=== PATIENT | female | born 1945 | race Caucasian/White ===

== ENCOUNTER → 2020-02-18 14:00 | Outpatient (BNVA) | payer MEDICARE, BC, SELFPAY | PROVIDERS: Visit Provider Nurse Practitioner Family | DX: Z11.59 Encounter for screening for other viral diseases (principal) | CPT/HCPCS: 87635 ==

== ENCOUNTER 2020-07-15 14:39 | Emergency (ER) | payer MEDICARE, BC, SELFPAY ==
--- NOTE | 2020-07-15 14:42 | XRR_ITS ---
PROCEDURE INFORMATION: Exam: XR Right Ankle Exam date and time: 07/15/2020 3:15 PM Age: 75 years old Clinical indication: Injury or trauma; Fall; Blunt trauma; Ankle; Right; Injury details: Pain on lateral side; Additional info: Trauma, fall TECHNIQUE: Imaging protocol: XR Right ankle. Views: 1 or 2 views. Total images: 2 COMPARISON: No relevant prior studies available. FINDINGS: Bones/joints: Nondisplaced avulsion fracture tip lateral malleolus right ankle. Ankle mortise intact. Soft tissues: Soft tissue swelling over the lateral malleolus. XR/XR ankle RT 2V [id number] IMPRESSION: 1. Nondisplaced avulsion fracture tip lateral malleolus right ankle. 2. Soft tissue swelling.
[2020-07-15 14:43] VITALS: BP 77/48; PULSE 59; RESP 18; TEMP 36.7; O2SAT 96; BMI 50.1
--- NOTE | 2020-07-15 15:19 | ECG_ITS ---
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 Measurements Intervals [place] Rate: 57 P: 33 ID: [id number] QRS: 3 QRSD: 81 T: 17 QT: 417 QTc: 407 Interpretive Statements SINUS BRADYCARDIA No previous ECG available for comparison Electronically Signed On 07-15-2020 20:27:22 CDT by Adelso Schuler M.D. [id number]
--- NOTE | 2020-07-15 15:33 | W.ED.FALL ---
HPI - Fall General: Chief Complaint: Fall Stated Complaint: Fall/pain in Rt ankle/Dizzy Time Seen by Provider: 07/15/20 14:58 Source: patient and family History of Present Illness: HPI Narrative: Patient presents with her says she came down off a porch and that she slipped on some wet grass area and twisted her right ankle. She denies hitting her head or any neck pain feels like she landed a little bit on her left side but denies any arm pain or chest pain or shortness of breath. She denies passing out she denies being dizzy spite what her stated complaint is. 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 She denies hip pain or thigh pain. She does have an abrasion on left knee but denies bony type pain Fall witnessed: yes, by family Place fall occurred: other Loss of consciousness: None Review of Systems General: Reports: 10 or more systems reviewed and unremarkable except in HPI and below Narrative: General: denies fatigue, fever or chills HEENT: denies ear pain, denies nasal congestion, denies vision changes, denies sore throat Neck: denies masses or pain Resp: denies cough, denies shortness of breath, denies pleuritic pain Cardio: denies chest pain, denies edema GI: denies abdominal pain, denies N/V/D, denies black/tarry or bloody stools : denies hematuria, denies dysuria Neuro: denies headache, denies dizziness, denies motor or sensory changes, denies hitting her head Musculoskeletal: see HPI, right ankle pain, denies hip or UE pain Skin: denies rashes, +abrasion over left knee Psych: denies SI or HI Endocrine: denies thyroid symptoms, denies lymphadenopathy all over ROS reviewed and patient denies PFSH ED PFSH: Social History Smoking and tobacco status: never smoked Alcohol intake: never Physical Exam Narrative: EXAM NARRATIVE: General: a/o/3, no distress Head: atraumatic HEENT: normal eyes, normal conjunctiva, normal hearing, normal external nose, normal mouth, mucous membranes moist Neck: FROM, trachea midline Chest: normal expansion, no gross deformities Resp: normal speech, no retractions, no accessory muscle use, CTA bilaterally Cardio: regular rate and rhythm and no murmur, no peripheral edema, normal peripheral pulses GI: soft, flat non tender, no guarding normal BS : deferred Musculoskeletal: Right lateral malleolus edema, normal pulses. denies knee pain bilaterally FROM, abrasion over left knee, no joint effusion, FROM of bilateral hips. denies chest wall pain, denies neck, thoracic or spine pain Neuro: a/o appropriate for age, no gross motor or sensory deficitys, CN II-XII grossly intact, normal coordination, normal speech Skin: no rashes Psych: cooperative, normal mood and effect Course Vital Signs: Vital signs: Vital Signs Temperature 98.1 F 07/15/20 14:43 Pulse Rate 60 07/15/20 15:50 Respiratory Rate 18 07/15/20 15:48 Blood Pressure 96/44 07/15/20 15:50 Pulse Oximetry 96 07/15/20 15:48 MDM - Fall MDM Narrative: Medical decision making narrative: Patient's blood pressure was 77/58 at triage and patient denies feeling dizzy or that being the cause she says she did take 2 Zanaflex prior to arrival when we got her in the room her blood pressure was improved. But she still had a another reading that was in the upper 90s so we will check some labs and an IV. I did discover that patient had gone to urgent care the who is a little ro[facility] says he went over there and some lady told him to come over here that he did not see anybody they saw nobody and told her to come to the ER I have no idea why they sent her here and what the cause was. Patient does not feel I need to x-ray her left knee she has full range of motion denies any neck or back pain and adamantly denies hitting her head We did have some pressure readings here that her pressure was 96/44 but her orthostatics were negative and she was asymptomatic. We will go ahead and start 500 cc of normal saline give her a little bolus here in the ER she does have a small avulsion fracture that I think we can treat with a gel splint they do have orthopedics in [place] where they live Patient is supposed to take atenolol tonight so recommended she hold that since her blood pressure has been on the low end she also needs to monitor it and if her blood pressure is soft tomorrow like under 115 she probably needs to hold her amlodipine as well she states keep a better eye on it and she may need to adjust her medications Medical Records: Attestation: I reviewed the patient's medical records. Lab Data: Attestation: I reviewed the patient's lab results. Labs: Lab Results 07/15/20 07/15/20 Range/Units 15:45 15:45 WBC 7.1 (4.0-10.0) 10^3/ uL RBC 4.26 (4.1-5.3) 10^6/u L Hgb 14.1 (11.5-15.3) g/dL Hct 41.2 (37.0-47.0) % MCV 96.7 (81-99) fL MCH 33.1 (28.0-34.0) pg MCHC 34.2 (30.0-36.0) g/dL RDW 12.6 (12.1-15.1) % Plt Count 226 (130-400) 10^3/c mm MPV 9.3 (7.4-10.4) fL Neut % (Auto) 53.4 % Lymph % (Auto) 29.9 % [place] % (Auto) 10.7 % Eos % (Auto) 4.8 % Baso % (Auto) 1.1 % Neut # (Auto) 3.78 (1.8-7.7) 10^3/u L Lymph # (Auto) 2.1 (0.8-4.8) 10^3/u L [place] # (Auto) 0.8 (0.2-0.9) 10^3/u L Eos # (Auto) 0.3 (0.0-0.8) 10^3/u L Baso # (Auto) 0.1 (0.0-0.1) 10^3/u L Nucleated RBC % (a uto) 0 % Nucleated RBCs # 0.0 /100WBC Sodium 141 (136-145) mmol/L Potassium 4.5 (3.5-5.1) mmol/L Chloride 105 (98-107) mmol/L Carbon Dioxide 25 (22-29) mmol/L Anion Gap 15.5 (5-19) BUN 23 (8-23) mg/dL Creatinine 1.0 H (0.5-0.9) mg/dL GFR Calculation Not Reportable Glucose 115 (65-115) mg/dL Calculated Osmolal ity 297 H (285-295) mOsm/k g Calcium 9.8 (8.5-10.5) mg/dL Imaging Data^: Other Xray: Attestation: I personally reviewed and interpreted this imaging study as follows: My impression: Avulsion fracture distal fibula nondisplaced EKG Data^: EKG 1: Attestation: I personally reviewed and interpreted this EKG as follows: EKG interpretation date: 07/15/20 EKG interpretation time: 15:32 Interpretation: sinus ashlee, rate 57, no acute st changes or elevation normal intervals and axis Discharge Plan Discharge Patient Disposition: Home Clinical Impression: Avulsion fracture of distal end of fibula, Blood pressure, low, incidental finding Condition: Stable Prescriptions: No Action atenolol 50 mg tablet 50 mg PO BID@1000,1900 RF: 0 citalopram 20 mg tablet 20 mg PO DAILY@10 RF: 0 dicyclomine 20 mg tablet 20 mg PO ONCE PRN (Reason: STOMACH CRAMPS) RF: 0 omeprazole magnesium [Prilosec OTC] 20 mg tablet,delayed release (DR/EC) 20 mg PO DAILY@10 RF: 0 amlodipine-benazepril [Lotrel] 10-20 mg capsule 1 cap PO DAILY@1000 RF: 0 levothyroxine [Synthroid] 100 mcg tablet 100 mcg PO DAILY@10 RF: 0 estradiol 0.0375 mg/24 hr patch semiweekly See Rx Instructions .ROUTE .COMPLEX RF: 0 simvastatin [Zocor] 40 mg tablet 40 mg PO DAILY@1900 RF: 0 travoprost [Travatan Z] 0.004 % drops 1 drp ophthalmic (eye) DAILY RF: 0 tizanidine 2 mg capsule 2 mg PO BID PRN (Reason: Muscle Pain) RF: 0 metformin 500 mg tablet 1,000 mg PO DAILY@1900 RF: 0 cyanocobalamin (vitamin B-12) 1,000 mcg capsule 1,000 mcg PO DAILY@10 RF: 0 coenzyme Q10 1 tab PO DAILY@10 RF: 0 Ca carbonate-mag oxide-vit C 1 tab PO BID@,19 RF: 0 cholecalciferol (vitamin D3) 25 mcg (1,000 unit) capsule 25 mcg PO DAILY@1000 RF: 0 potassium chloride 8 mEq capsule, extended release 8 meq PO DAILY@10 RF: 0 multivitamin Tablet 1 tab PO DAILY@1900 RF: 0 lidocaine 5 % Adhesive Patch,Medicated 1 patch TOPICAL DAILY PRN (Reason: Pain) RF: 0 gabapentin 300 mg Capsule 300 mg PO TID RF: 0 Excedrin Migraine 250-250-65 mg Tablet 1 tab PO DAILY RF: 0 fiber Capsule 1 cap PO BID@,19 RF: 0 Discharge Orders: Discharge ED (Routine); Ordered 07/15/20 Ordered By: Gardenia Hodge Patient Instructions: Ankle Fracture (ED), Hypotension (ED) Activity Restrictions/Additional Instructions: I think you should hold your atenolol tonight your blood pressure in the morning and if it is below 115 I would hold your amlodipine or cut it in half and monitor your blood pressure regularly throughout the day Keep an eye on her blood pressure and take some readings twice a day over the next week as you may be running too low on her blood pressure and need to cut back on some of your medication return if you have chest pain shortness of breath or passing out you need to wear your ankle splint ice and elevate you need to call your orthopedic doctor on Friday and have a follow-up appointment to determine if the splint is adequate or if you need further casting or a boot Thank you for choosing [facility] for your healthcare needs today. Please realize this is an emergency room and that we are providing you with a medical screening exam and this may not be complete and all inclusive of all the testing and or work up that you may need to determine your ailment or severity of your illness. It is very important that you follow up as instructed or that you return to the Emergency Department should you have concerns or if your condition changes or worsens in any way. Coding Level of Care Code ED Extract Operator for Reva Sharpe
[2020-07-15 15:48] VITALS: BP 96/44; PULSE 60; RESP 18; O2SAT 96
[2020-07-15 15:50] VITALS: BP 94/48; BP 94/52; BP 96/44; PULSE 60; PULSE 61; PULSE 65
--- NOTE | 2020-07-15 15:53 | PC.NURSE ---
pt states she only has pain when she moves her ankle
[2020-07-15 15:54] LABS: Basophils # 0.1 10^3/uL (0.0-0.1); Basophils % 1.1 %; Eosinophils # 0.3 10^3/uL (0.0-0.8); Eosinophils % 4.8 %; Hematocrit 41.2 % (37.0-47.0); Hemoglobin 14.1 g/dL (11.5-15.3); Lymphocytes # 2.1 10^3/uL (0.8-4.8); Lymphocytes % 29.9 %; Mean Corpuscular HGB Conc 34.2 g/dL (30.0-36.0); Mean Corpuscular Hemoglobin 33.1 pg (28.0-34.0); Mean Corpuscular Volume 96.7 fL (81-99); Mean Platelet Volume 9.3 fL (7.4-10.4); Monocytes # 0.8 10^3/uL (0.2-0.9); Monocytes % 10.7 %; Neutrophils # 3.78 10^3/uL (1.8-7.7); Neutrophils % 53.4 %; Nucleated Red Blood Cells % 0 %; Platelet Count 226 10^3/cmm (130-400); Red Blood Count 4.26 10^6/uL (4.1-5.3); Red Cell Distribution Width 12.6 % (12.1-15.1); White Blood Count 7.1 10^3/uL (4.0-10.0)
[2020-07-15 16:15] LABS: Anion Gap 15.5 (5-19); Blood Urea Nitrogen 23 mg/dL (8-23); Calcium 9.8 mg/dL (8.5-10.5); Carbon Dioxide 25 mmol/L (22-29); Chloride 105 mmol/L (98-107); Glucose 115 mg/dL (65-115); Osmolality Calculated 297 mOsm/kg (285-295); Potassium 4.5 mmol/L (3.5-5.1); Sodium 141 mmol/L (136-145)
[2020-07-15] MEDS: sodium chloride 0.9% 500 ML 999 ML IV (16:16)
--- NOTE | 2020-07-15 17:10 | W.ED.FALL ---
HPI - Fall General: Chief Complaint: Fall Stated Complaint: Fall/pain in Rt ankle/Dizzy Time Seen by Provider: 07/15/20 14:58 Source: patient and family History of Present Illness: Place fall occurred: other [facility] ED PFSH: Social History Smoking and tobacco status: never smoked Alcohol intake: never Course Vital Signs: Vital signs: Vital Signs Temperature 98.1 F 07/15/20 14:43 Pulse Rate 60 07/15/20 15:50 Respiratory Rate 18 07/15/20 15:48 Blood Pressure 96/44 07/15/20 15:50 Pulse Oximetry 96 07/15/20 15:48 MDM - Fall Lab Data: Labs: Lab Results 07/15/20 07/15/20 Range/Units 15:45 15:45 WBC 7.1 (4.0-10.0) 10^3/ uL RBC 4.26 (4.1-5.3) 10^6/u L Hgb 14.1 (11.5-15.3) g/dL Hct 41.2 (37.0-47.0) % MCV 96.7 (81-99) fL MCH 33.1 (28.0-34.0) pg MCHC 34.2 (30.0-36.0) g/dL RDW 12.6 (12.1-15.1) % Plt Count 226 (130-400) 10^3/c mm MPV 9.3 (7.4-10.4) fL Neut % (Auto) 53.4 % Lymph % (Auto) 29.9 % [place] % (Auto) 10.7 % Eos % (Auto) 4.8 % Baso % (Auto) 1.1 % Neut # (Auto) 3.78 (1.8-7.7) 10^3/u L Lymph # (Auto) 2.1 (0.8-4.8) 10^3/u L [place] # (Auto) 0.8 (0.2-0.9) 10^3/u L Eos # (Auto) 0.3 (0.0-0.8) 10^3/u L Baso # (Auto) 0.1 (0.0-0.1) 10^3/u L Nucleated RBC % (a uto) 0 % Nucleated RBCs # 0.0 /100WBC Sodium 141 (136-145) mmol/L Potassium 4.5 (3.5-5.1) mmol/L Chloride 105 (98-107) mmol/L Carbon Dioxide 25 (22-29) mmol/L Anion Gap 15.5 (5-19) BUN 23 (8-23) mg/dL Creatinine 1.0 H (0.5-0.9) mg/dL GFR Calculation Not Reportable Glucose 115 (65-115) mg/dL Calculated Osmolal ity 297 H (285-295) mOsm/k g Calcium 9.8 (8.5-10.5) mg/dL Discharge Plan Discharge Patient Disposition: Home Clinical Impression: Avulsion fracture of distal end of fibula, Blood pressure, low, incidental finding Condition: Stable Prescriptions: No Action atenolol 50 mg tablet 50 mg PO BID@1000,1900 RF: 0 citalopram 20 mg tablet 20 mg PO DAILY@10 RF: 0 dicyclomine 20 mg tablet 20 mg PO ONCE PRN (Reason: STOMACH CRAMPS) RF: 0 omeprazole magnesium [Prilosec OTC] 20 mg tablet,delayed release (DR/EC) 20 mg PO DAILY@10 RF: 0 amlodipine-benazepril [Lotrel] 10-20 mg capsule 1 cap PO DAILY@999 RF: 0 levothyroxine [Synthroid] 100 mcg tablet 100 mcg PO DAILY@10 RF: 0 estradiol 0.0375 mg/24 hr patch semiweekly See Rx Instructions .ROUTE .COMPLEX RF: 0 simvastatin [Zocor] 40 mg tablet 40 mg PO DAILY@1899 RF: 0 travoprost [Travatan Z] 0.004 % drops 1 drp ophthalmic (eye) DAILY RF: 0 tizanidine 2 mg capsule 2 mg PO BID PRN (Reason: Muscle Pain) RF: 0 metformin 500 mg tablet 1,000 mg PO DAILY@190 RF: 0 cyanocobalamin (vitamin B-12) 1,000 mcg capsule 1,000 mcg PO DAILY@10 RF: 0 coenzyme Q10 1 tab PO DAILY@10 RF: 0 Ca carbonate-mag oxide-vit C 1 tab PO BID@,19 RF: 0 cholecalciferol (vitamin D3) 25 mcg (1,000 unit) capsule 25 mcg PO DAILY@1000 RF: 0 potassium chloride 8 mEq capsule, extended release 8 meq PO DAILY@10 RF: 0 multivitamin Tablet 1 tab PO DAILY@1900 RF: 0 lidocaine 5 % Adhesive Patch,Medicated 1 patch TOPICAL DAILY PRN (Reason: Pain) RF: 0 gabapentin 300 mg Capsule 300 mg PO TID RF: 0 Excedrin Migraine 250-250-65 mg Tablet 1 tab PO DAILY RF: 0 fiber Capsule 1 cap PO BID@10,19 RF: 0 Discharge Orders: Discharge ED (Routine); Ordered 07/15/20 Ordered By: Gardenia Hodge Patient Instructions: Ankle Fracture (ED), Hypotension (ED) Activity Restrictions/Additional Instructions: I think you should hold your atenolol tonight your blood pressure in the morning and if it is below 115 I would hold your amlodipine or cut it in half and monitor your blood pressure regularly throughout the day Keep an eye on her blood pressure and take some readings twice a day over the next week as you may be running too low on her blood pressure and need to cut back on some of your medication return if you have chest pain shortness of breath or passing out you need to wear your ankle splint ice and elevate you need to call your orthopedic doctor on Friday and have a follow-up appointment to determine if the splint is adequate or if you need further casting or a boot Thank you for choosing [facility] for your healthcare needs today. Please realize this is an emergency room and that we are providing you with a medical screening exam and this may not be complete and all inclusive of all the testing and or work up that you may need to determine your ailment or severity of your illness. It is very important that you follow up as instructed or that you return to the Emergency Department should you have concerns or if your condition changes or worsens in any way. Coding Level of Care Code ED Pipelaying Fitter for Reva Sharpe
[2020-07-15 17:40] VITALS: BP 111/50; PULSE 60; RESP 18; O2SAT 94
== END 2020-07-15 17:40 | disposition home or self-care (01) ==
PROVIDERS: Emergency Provider Emergency Medicine
DX: S82.831A Other fracture of upper and lower end of right fibula, initial encounter for closed fracture (principal); I95.9 Hypotension, unspecified; W01.0XXA Fall on same level from slipping, tripping and stumbling without subsequent striking against object, initial encounter
CPT/HCPCS: 73600; 80048; 85025; 93005; 99283; J7040

== ENCOUNTER 2021-06-21 06:00 | Outpatient (RCR) | payer MEDICARE, BC, SELFPAY | END 2021-07-12 23:59 | disposition home or self-care (01) | LOC: SPT 06:00 | PROVIDERS: Referring Provider Family Medicine; Visit Provider Family Medicine | DX: H81.13 Benign paroxysmal vertigo, bilateral (principal) | CPT/HCPCS: 95992; 97162 ==

== ENCOUNTER 2021-07-13 06:00 | Outpatient (RCR) | payer MEDICARE, BC, SELFPAY | END 2021-07-27 23:59 | disposition home or self-care (01) | LOC: SPT 06:00 | PROVIDERS: Referring Provider Family Medicine; Visit Provider Family Medicine | DX: H81.13 Benign paroxysmal vertigo, bilateral (principal) | CPT/HCPCS: 95992 ==

== ENCOUNTER 2021-07-17 06:00 | Outpatient (RCR) | payer MEDICARE, BC, SELFPAY | END 2021-08-11 23:59 | disposition home or self-care (01) | LOC: SST 06:00 | PROVIDERS: Referring Provider Family Medicine; Visit Provider Family Medicine | DX: R49.9 Unspecified voice and resonance disorder (principal) | CPT/HCPCS: 92507; 92524 ==

== ENCOUNTER 2021-08-12 06:00 | Outpatient (RCR) | payer MEDICARE, BC, SELFPAY | END 2021-08-31 16:52 | disposition home or self-care (01) | LOC: SST 06:00 | PROVIDERS: Referring Provider Family Medicine; Visit Provider Family Medicine | DX: R49.9 Unspecified voice and resonance disorder (principal) | CPT/HCPCS: 92507 ==

== ENCOUNTER 2022-07-24 11:13 | Outpatient (RCR) | payer MEDICARE, BC, SELFPAY | END 2022-08-11 23:59 | disposition home or self-care (01) | LOC: SPT 11:13 | PROVIDERS: Visit Provider Family Medicine | DX: H81.12 Benign paroxysmal vertigo, left ear (principal) | CPT/HCPCS: 95992; 97161 ==

== ENCOUNTER 2023-06-19 06:00 | Outpatient (RCR) | payer MEDICARE, BC, SELFPAY | END 2023-07-13 23:59 | disposition home or self-care (01) | LOC: GST 06:00 | PROVIDERS: Visit Provider Family Medicine | DX: R13.10 Dysphagia, unspecified (principal); R29.6 Repeated falls | CPT/HCPCS: 92507; 92523 ==

== ENCOUNTER 2023-06-25 06:00 | Outpatient (RCR) | payer MEDICARE, BC, SELFPAY | END 2023-07-13 23:59 | disposition home or self-care (01) | LOC: GPT 06:00 | PROVIDERS: Visit Provider Family Medicine | DX: R29.6 Repeated falls (principal) | CPT/HCPCS: 97110; 97112; 97163; 97530 ==

== ENCOUNTER 2023-07-14 06:00 | Outpatient (RCR) | payer MEDICARE, BC, SELFPAY | END 2023-08-12 23:59 | disposition home or self-care (01) | LOC: GST 06:00 | PROVIDERS: Visit Provider Family Medicine | DX: R13.10 Dysphagia, unspecified (principal); R26.9 Unspecified abnormalities of gait and mobility | CPT/HCPCS: 92507 ==

== ENCOUNTER 2023-07-14 06:00 | Outpatient (RCR) | payer MEDICARE, BC, SELFPAY | END 2023-08-12 23:59 | disposition home or self-care (01) | LOC: GPT 06:00 | PROVIDERS: Visit Provider Family Medicine | DX: R29.6 Repeated falls (principal) | CPT/HCPCS: 97110; 97112 ==

== ENCOUNTER 2023-08-13 06:00 | Outpatient (RCR) | payer MEDICARE, BC, SELFPAY | END 2023-09-12 23:59 | disposition home or self-care (01) | LOC: GPT 06:00 | PROVIDERS: Visit Provider Family Medicine | DX: R29.6 Repeated falls (principal) | CPT/HCPCS: 97110; 97112 ==

== ENCOUNTER 2023-08-13 06:00 | Outpatient (RCR) | payer MEDICARE, BC, SELFPAY | END 2023-09-12 23:59 | disposition home or self-care (01) | LOC: GST 06:00 | PROVIDERS: Visit Provider Family Medicine | DX: Q31.8 Other congenital malformations of larynx (principal); R49.9 Unspecified voice and resonance disorder | CPT/HCPCS: 92507 ==

== ENCOUNTER 2023-09-13 06:00 | Outpatient (RCR) | payer MEDICARE, BC, SELFPAY | END 2023-10-12 23:59 | disposition home or self-care (01) | LOC: GST 06:00 | PROVIDERS: Visit Provider Family Medicine | DX: R13.10 Dysphagia, unspecified (principal) | CPT/HCPCS: 92507 ==

== ENCOUNTER 2023-09-13 06:00 | Outpatient (RCR) | payer MEDICARE, BC, SELFPAY | END 2023-10-12 23:59 | disposition home or self-care (01) | LOC: GPT 06:00 | PROVIDERS: Visit Provider Family Medicine | DX: R29.6 Repeated falls (principal) | CPT/HCPCS: 97110; 97112 ==

== ENCOUNTER 2023-10-13 06:00 | Outpatient (RCR) | payer MEDICARE, BC, SELFPAY | END 2023-11-12 23:59 | disposition home or self-care (01) | LOC: GST 06:00 | PROVIDERS: Visit Provider Family Medicine | DX: R13.10 Dysphagia, unspecified (principal) | CPT/HCPCS: 92507 ==

== ENCOUNTER 2023-10-13 06:00 | Outpatient (RCR) | payer MEDICARE, BC, SELFPAY | END 2023-11-11 23:59 | disposition home or self-care (01) | LOC: GPT 06:00 | PROVIDERS: Visit Provider Family Medicine | DX: R29.6 Repeated falls (principal) | CPT/HCPCS: 97110; 97164 ==

== ENCOUNTER 2024-04-14 06:30 | Outpatient (RCR) | payer MEDICARE, BC, SELFPAY | END 2024-05-14 23:59 | disposition home or self-care (01) | LOC: GPT 06:30 | PROVIDERS: Visit Provider Family Medicine | DX: R06.02 Shortness of breath (principal) | CPT/HCPCS: 97110; 97112; 97162; 97530 ==

== ENCOUNTER 2024-05-15 06:30 | Outpatient (RCR) | payer MEDICARE, BC, SELFPAY | END 2024-06-11 23:59 | disposition home or self-care (01) | LOC: GPT 06:30 | PROVIDERS: Visit Provider Family Medicine | DX: M62.81 Muscle weakness (generalized) (principal); R26.81 Unsteadiness on feet; R06.02 Shortness of breath | CPT/HCPCS: 97110; 97530 ==

== ENCOUNTER 2024-06-12 06:30 | Outpatient (RCR) | payer MEDICARE, BC, SELFPAY | END 2024-06-16 08:10 | disposition home or self-care (01) | LOC: GPT 06:30 | PROVIDERS: Visit Provider Family Medicine | DX: R06.02 Shortness of breath (principal) | CPT/HCPCS: 97110; 97164 ==

== ENCOUNTER 2024-07-13 05:00 | Outpatient (RCR) | payer MEDICARE, BC, SELFPAY | END 2024-08-11 23:59 | disposition home or self-care (01) | LOC: GPT 05:00 | PROVIDERS: Visit Provider Family Medicine | DX: M48.02 Spinal stenosis, cervical region (principal); M48.061 Spinal stenosis, lumbar region without neurogenic claudication; M54.12 Radiculopathy, cervical region | CPT/HCPCS: 97110; 97112; 97162; 97530 ==

== ENCOUNTER 2024-09-10 14:07 | Outpatient (CLI) | payer MEDICARE, BC, SELFPAY ==
[2024-09-10 14:43] LABS: Bilirubin Urine Negative (Negative); Blood Urine Negative (Negative); Glucose Urine UA Negative (Normal); Ketones Urine Negative (Negative); Leukocyte Esterase Urine Negative (Negative); Nitrate Urine Negative (Negative); Protein Urine Negative (Negative); Specific Gravity, Urine 1.013 (1.005-1.030); Urine Appearance Clear (CLEAR); Urine Color Yellow (Yellow); Urobilinogen Urine 0.2 mg/dL (Negative); pH Urine 5.5 (5-7)
[2024-09-10 14:49] LABS: Add Urine Microscopic? YES; Bacteria Urine None Seen /hpf; Hyaline Casts Urine 0-4 /lpf; RBC Urine 0-2 /hpf (0-2); Squamous Epithelial Cell Urine 0-5 /hpf (0-5); WBC Urine 0-5 /hpf (0-5)
== END 2024-09-10 14:08 | disposition home or self-care (01) ==
LOC: LAB 14:11
PROVIDERS: Visit Provider Family Medicine
DX: N39.0 Urinary tract infection, site not specified (principal)
CPT/HCPCS: 81001; 87086

== ENCOUNTER 2024-10-18 17:28 | Outpatient (CLI) | payer MEDICARE, BC, SELFPAY | END 2024-10-18 17:29 | disposition home or self-care (01) | LOC: LAB 17:31 | PROVIDERS: Visit Provider Family Medicine | DX: N39.0 Urinary tract infection, site not specified (principal) | CPT/HCPCS: 87086 ==

== ENCOUNTER 2024-10-25 15:36 | Outpatient (CLI) | payer MEDICARE, BC, SELFPAY ==
[2024-10-25 16:07] LABS: Glucose Urine UA Negative (Normal); Nitrate Urine Negative (Negative); Specific Gravity, Urine 1.017 (1.005-1.030)
[2024-10-25 16:10] LABS: Add Urine Microscopic? YES
== END 2024-10-25 15:37 | disposition home or self-care (01) ==
LOC: LAB 15:39
PROVIDERS: Visit Provider Family Medicine
DX: N39.0 Urinary tract infection, site not specified (principal)
CPT/HCPCS: 81001

== ENCOUNTER 2024-12-13 05:00 | Outpatient (RCR) | payer MEDICARE, BC, SELFPAY | END 2025-01-11 23:59 | disposition home or self-care (01) | LOC: GPT 05:00 | PROVIDERS: Visit Provider Family Medicine | DX: R42 Dizziness and giddiness (principal) | CPT/HCPCS: 97110; 97112; 97140; 97162 ==

== ENCOUNTER 2025-02-08 15:01 | Outpatient (RCR) | payer MEDICARE, BC, SELFPAY | END 2025-02-11 23:59 | disposition home or self-care (01) | LOC: GPT 15:01 | PROVIDERS: Visit Provider Family Medicine | DX: R42 Dizziness and giddiness (principal) | CPT/HCPCS: 97164 ==

== ENCOUNTER 2025-03-14 05:00 | Outpatient (RCR) | payer MEDICARE, BC, SELFPAY | END 2025-04-13 23:59 | disposition home or self-care (01) | LOC: GPT 05:00 | PROVIDERS: Visit Provider Family Medicine | DX: R29.6 Repeated falls (principal) | CPT/HCPCS: 97110; 97112; 97161 ==